=== PATIENT | male | born 1940 | race Caucasian/White ===

== ENCOUNTER 2017-01-11 11:00 | Inpatient (IN) | payer BC ==
--- NOTE | ~2017-01-11 | DS ---
Discharge Summary [facility] [address] [place]. [address] NAME: KERI ROBERTSON : 42 STATUS : DIS IN PAT#: [id number] AGE: 76 ADM/REG DATE : 01/11/17 MR#: [id number] REPORT SERV DATE: 01/14/17 DICTATED BY: DATE: REPORT STATUS : Draft TRANSCRIBED BY: MODL DATE: 01/13/17 ADMISSION DATE: 01/11/2017 DISCHARGE DATE: 01/13/2017 [facility] CONSULTANTS: Dr. Too Hernández of Urology. DISCHARGE DIAGNOSES: 1. Posterior scrotal abscess, status post incision and drainage at the bedside on 01/11/2017. Wound culture pending at the time of discharge. For additional local wound care, through either home health or the [facility]. Discharge antibiotics include Levaquin and Flagyl. 2. Insulin-dependent diabetes mellitus type 2 - uncontrolled as an outpatient with hemoglobin A1c 7.9. Required significantly less insulin during hospitalization. 3. Acute kidney injury on chronic kidney disease, stage 3 to 4, resolved. Baseline creatinine between 1.8 and 2.0. JODEE inhibitor held at discharge for re-evaluation by primary care provider. 4. Hypertension - controlled. 5. Hyperlipidemia. 6. Hypothyroidism - on replacement with elevation in TSH, but normal free T4. For outpatient repeat. 7. Chronic left bundle-branch block. 8. History of right thalamic cerebrovascular accident. 9. Possible mild cognitive impairment versus early dementia, documented in the record previously. IMAGIN. Pelvis CT without contrast, for scrotal mass shows edema in the subcutaneous fat. Minimal fluid in the scrotum. Diverticulosis but no diverticulitis. Grade 2 anterior spondylolisthesis of L5 on S1 with bilateral spondylolysis and degenerative disk change. 2. Testicular ultrasound, normal heterogeneous texture of older testes. No testicular mass. Circumscribed mildly hypoechoic nodule in the posterior testicular wall in the midline may represent remote inflammatory process or result of trauma. Area is not hyperemic to strongly suggest inflammation. 3. Portable chest x-ray, coarse interstitial markings and no acute abnormality. 4. Renal ultrasound, no hydronephrosis. Increased renal cortical echogenicity compatible with chronic medical renal disease. Distended bladder. PERTINENT LABS: Creatinine at admission was 2.57, 2.1 at the time of discharge. Potassium values between 5 and 5.2. Not on any supplementation. Liver enzymes normal. TSH 8.77, free T4 0.95, hemoglobin A1c 7.9, ammonia level negative. Lactic acid level 0.9. White blood cell count between 9.4 and 10.6, hemoglobin 12.7, hematocrit 37, platelets 272. Coagulation studies normal. Urinalysis showed protein, but no signs of infection. Blood cultures x2 no growth. Wound culture in progress. Occasional white blood cells and Discharge Summary [address] [address] NAME: KERI ROBERTSON : 42 STATUS : DIS IN PAT#: [id number] AGE: 76 ADM/REG DATE : 01/11/17 MR#: [id number] REPORT SERV DATE: 01/14/17 DICTATED BY: DATE: REPORT STATUS : Draft TRANSCRIBED BY: MODL DATE: 01/13/17 occasional gram-positive bacilli on Gram stain. BRIEF HISTORY: For full details, please see the previously dictated history of present illness by Dr. Amy Brown. This is a 76-year-old white male with history of scrotal abscesses, previously drained by Dr. Rich Hills, who presented to the emergency department with a chief complaint of tender nodule on the posterior aspect of the scrotum which had been present for two weeks. He was also found to have acute kidney injury and admitted to the Hospitalist Service for management. HOSPITAL COURSE: For the posterior scrotal abscess, the patient was placed on Levaquin and vancomycin empirically and urology consultation was obtained. Dr. Too Hernández saw the patient on the day of admission and performed a bedside incision and drainage. Noted that the abscess was approximately 3 cm, with moderate amount of purulent material. The Gram stain demonstrated scant white blood cells and gram-positive bacilli. The culture is pending at the time of discharge. Empiric antibiotics selected for discharge will include Levaquin and Flagyl. Culture results will need to be followed up in the outpatient setting. The patient's acute kidney injury responded with holding his JODEE inhibitor and gently hydrating. Of note, he also had evidence of mild hyperkalemia, suggesting that he may not be tolerant of an JODEE inhibitor. His lisinopril was held during the admission and at discharge, for followup with his primary care provider. His blood pressure was controlled on his other medications at the time of discharge. He does have insulin-dependent diabetes and requires a significant amount of insulin as an outpatient. Here, experienced relative hypoglycemia on significantly lower doses of insulin suggesting a strong component of dietary noncompliance or insulin noncompliance in the outpatient setting. This needs to be followed up by his primary care provider as well. Also, on levothyroxine, he was noted to have an elevated TSH above 8, but a normal free T4. He should have outpatient thyroid function tests for possible dosage adjustments. The patient was ready for discharge on 01/13/2017, and were in the process of determining how he will obtain wound care. Unfortunately, his insurance only covers one home health visit, and it is unclear whether the patient will be able to attend to his own wound given the location. He states he has no family members to assist, and he is refusing detention care for dressing changes. Instead, we are looking into having and follow up with the [facility] three times next week for dressing changes, and to follow up closely with Dr. Rich Hills in one to two weeks. He will be discharged on an additional eight days of antibiotics to complete a 10-day course of antibiotics post incision and drainage. He will need to follow up with primary care provider, Nicole Wetzel in two-three weeks regarding lisinopril, repeat basic metabolic panel, a repeat thyroid function tests, and levothyroxine dosing. DISCHARGE MEDICATIONS: Include: 1. Lantus 64 units subcu at bedtime. Discharge Summary [address] [address] NAME: KERI ROBERTSON : 42 STATUS : DIS IN PAT#: [id number] AGE: 76 ADM/REG DATE : 01/11/17 MR#: [id number] REPORT SERV DATE: 01/14/17 DICTATED BY: DATE: REPORT STATUS : Draft TRANSCRIBED BY: MODHuber DATE: 01/13/17 2. Levothyroxine 50 mcg p.o. daily. 3. Metoprolol 12.5 mg p.o. twice a day. 4. Pravastatin 40 mg p.o. daily. 5. Nifedipine ER 30 mg p.o. daily. 6. Levaquin 750 mg p.o. q.48 hours x4 days - to start on 01/13/2017. 7. Flagyl 500 mg p.o. q.8 hours for 8 days. Thirty five minutes was spent in completion of the discharge. DICTATED BY: Jimmy Aburto/JULITO Jamaal Torrez M.D. / [id number] CC: Jimmy Aburto Susan Gaile David Sahaj, M.D.
--- NOTE | ~2017-01-11 | HP ---
History And Physical [facility] [address] [place]. [address] NAME: KERI ROBERTSON : 42 STATUS : ADM IN [facility]#: [id number] AGE: 76 ADM/REG DATE : 01/11/17 MR#: [id number] REPORT SERV DATE: 01/11/17 DICTATED BY: AMY BOYD DATE: 01/11/17 REPORT STATUS : Draft TRANSCRIBED BY: MODL DATE: 01/11/17 DATE OF ADMISSION: 01/11/2017 CHIEF COMPLAINT: Scrotal mass and discomfort for two weeks. HISTORY OF PRESENT ILLNESS: This is a very pleasant, but very poor historian, 76-year-old gentleman. He does have a history of prior stroke, hypertension, hyperlipidemia, diabetes type 2, hypothyroidism, chronic kidney disease, and history of a scrotal abscess that has been operated on by Dr. Hills in 2014, presenting today to [facility] with complaints that he has a discomfort on his scrotum and that has been occurring about two weeks ago. He has not had really pain, but the patient says that about two weeks ago, he had a small node on the scrotal area, was a little bit tender, but no discharge. No fever. No really pain, but some discomfort and he has decided to come today to emergency room to "see what is going on." He did not have any fever. No chills. No chest pain or increasing shortness of breath. No PND. No orthopnea. No abdominal pain. No increased urinary frequency or urgency. No hematemesis or melena. No hematochezia. No other complaints. He has been evaluated in the emergency room, and after talking with Dr. Hills, the patient has been admitted to Hospitalist Service for further evaluation and treatment. PAST MEDICAL HISTORY: Significant for hypertension, hyperlipidemia, diabetes type 2, insulin dependent, hypothyroidism, history of CVA, as well as chronic left bundle-branch block. PAST SURGICAL HISTORY: Scrotal surgery for scrotal abscess with I and D in 2014. ALLERGIES: HE DOES NOT HAVE ANY DRUG ALLERGIES. FAMILY HISTORY: Significant for cancer. SOCIAL HISTORY: The patient is . He does not smoke. No alcohol. No IV drugs. MEDICATIONS AT HOME: Include Lantus, levothyroxine, Prinivil, Lopressor, Adalat, and Pravachol. REVIEW OF SYSTEMS: Fourteen-point review of systems has been obtained and pertinent positive has been listed into the history of present illness. Otherwise, negative except for those underlying above. PHYSICAL EXAMINATION: VITAL SIGNS: The patient is afebrile. Blood pressure 148/71, heart rate 86, respiratory rate 16, and saturating 98% on room air. GENERAL: He is a very pleasant, well-developed, well-nourished gentleman, in no acute distress. Alert and oriented x3. He is nonfocal. He follows all his commands appropriately. HEENT: Shows pupils equal, round, reactive to light. Extraocular movements are intact. NECK: No JVD. No lymphadenopathy. No thyromegaly appreciated. CHEST: Evaluation shows bilateral air entry, clear anteroposterior. No wheezes, crackles, History And Physical [address] [address] NAME: KERI ROBERTSON : 42 STATUS : ADM IN [facility]#: [id number] AGE: 76 ADM/REG DATE : 01/11/17 MR#: [id number] REPORT SERV DATE: 01/11/17 DICTATED BY: AMY BOYD DATE: 01/11/17 REPORT STATUS : Draft TRANSCRIBED BY: MODL DATE: 01/11/17 or rhonchi appreciated. CARDIOVASCULAR: Regular rate and rhythm. S1, S2 positive. No S3, no S4. No murmurs, rubs, or gallops appreciated. ABDOMEN: Soft with positive bowel sounds. Nontender. No guarding. No rebound. EXTREMITIES: No clubbing, cyanosis, or edema. NEUROLOGIC: The patient is alert and oriented x3. He is nonfocal. He follows all commands appropriately. UROGENITAL: There is a scrotal mass in the posteromedial area of the scrotum that is just mildly tender. No fluctuance appreciated. No drain. No redness. LABORATORY DATA: Labs from today include sodium 137, potassium is 5, chloride 105, CO2 of 24, BUN 45, creatinine is 2.57, glucose is 159. His white count is 10.2, hemoglobin 12.7, hematocrit 36.7, and platelets 287. UA currently is pending. There is CT of the pelvis without contrast that is pending as well. ASSESSMENT: This is a very pleasant 76-year-old gentleman with: 1. Questionable abscess, scrotal mass of unclear etiology. 2. Yyhfh-ws-scbbuwr kidney disease stage 3. 3. History of hypertension. 4. Diabetes type 2, insulin dependent, uncontrolled. 5. Hyperlipidemia. 6. History of cerebrovascular accident. 7. Chronic left bundle-branch block. PLAN: 1. Scrotal mass. Unclear etiology, questionable possible abscess. We are going to get the CAT scan of the pelvis without contrast and also a scrotal ultrasound. Panculture him. We are going to start him empirically on antibiotics with Levaquin and vancomycin and consult Dr. Hills for further recommendation. 2. Dfxsr-zh-olxsezt kidney disease. We are going to provide IV hydration. We are going to check UA, urine cultures, as well as studies including urine sodium, creatinine, and osmolality. We are going to check a renal ultrasound. We are going to hold his Prinivil, and strict I's and O's and strict daily weights. 3. History of hypertension. Continue his beta-valdo. Continue his Adalat. Provide p.r.n. hydralazine as needed. 4. Diabetes type 2. We will check hemoglobin A1c. Levemir at bedtime and place the patient on sliding scale insulin subcutaneously level 2. We are going to provide reasonable pain and nausea control, as well as GI and DVT prophylaxis. That has been discussed extensively with the patient. All the questions have been answered in full. Further workup and recommendation pending above. It is worthwhile to note that the patient is going to be followed up by Hospitalist Service. CF/MODL History And Physical [address] [address] NAME: KERI ROBERTSON : 42 STATUS : ADM IN [facility]#: [id number] AGE: 76 ADM/REG DATE : 01/11/17 MR#: [id number] REPORT SERV DATE: 01/11/17 DICTATED BY: AMY BOYD DATE: 01/11/17 REPORT STATUS : Draft TRANSCRIBED BY: JULITO DATE: 01/11/17 y Boyd M.D. / [id number] CC: Jimmy Aburto,NEHEMIAS BANSAL
--- NOTE | ~2017-01-11 | CN ---
Consultation Report [facility] [address] [place]. [address] NAME: KERI ROBERTSON : 42 STATUS : ADM IN [facility]#: [id number] AGE: 76 ADM/REG DATE : 01/11/17 MR#: [id number] REPORT SERV DATE: 01/11/17 DICTATED BY: TOO CELESTE DATE: 01/11/17 REPORT STATUS : Draft TRANSCRIBED BY: MODHuber DATE: 01/11/17 CONSULTATION REPORT DATE OF CONSULTATION: 01/11/2017 REASON FOR CONSULTATION: "Scrotal mass." HISTORY OF PRESENT ILLNESS: Mr. Robertson is a 76-year-old white gentleman who is an established patient of Dr. Rich Hills. At about five years ago, the patient had a scrotal abscess incised and drained. He is admitted with among other things, a recurrent midline perineal fluctuant mass consistent with abscess. He says he has had about two weeks. No fever or chills. Voiding well, clear yellow urine. Lab is reviewed. The patient is to be started on vancomycin and Levaquin. IMPRESSION: Scrotal abscess. PLAN: Incise and drain scrotal abscess at the bedside under local anesthetic. This was explained to the patient and he understands, permit signed. /JULITO Too Celeste M.D. / [id number] CC: Jimmy Aburto SUSAN GAILE
--- NOTE | ~2017-01-11 | OP ---
Record Of Operation [facility] [address] [place]. [address] NAME: KERI ROBERTSON : 42 STATUS : ADM IN [facility]#: [id number] AGE: 76 ADM/REG DATE : 01/11/17 MR#: [id number] REPORT SERV DATE: 01/12/17 DICTATED BY: TOO CELESTE DATE: 01/11/17 REPORT STATUS : Draft TRANSCRIBED BY: MODL DATE: 01/11/17 DATE OF PROCEDURE: 01/11/2017 PREOPERATIVE DIAGNOSIS: Superficial scrotal abscess. POSTOPERATIVE DIAGNOSIS: Superficial scrotal abscess. OPERATIVE PROCEDURE: Incision and drainage of scrotal abscess. ANESTHESIA: Local. SURGEON: Too Celeste M.D. ESTIMATED BLOOD LOSS: Less than 2 mL. SPECIMEN: Purulent material from abscess for culture and sensitivity. COMPLICATIONS: None. IMMEDIATE POSTOP: Satisfactory. DESCRIPTION OF PROCEDURE: The patient was prepped and draped in sterile fashion. The scrotum was lifted upward so that the perineum and 3 cm scrotal fluctuant mass was visible. I then anesthetized the skin with Xylocaine without epinephrine. An incision was then made in the abscess and a moderate amount of purulent material issued forth. A sample of this was obtained for culture. The wound was then cleaned with saline and packed with iodoform gauze. It was then dressed. The patient tolerated the procedure well. There were no complications. /JULITO Too Celeste M.D. / [id number] CC: Jimmy Aburto Dr.
[2017-01-11 10:10] LABS: BASOPHILS 0.5 %; BASOPHILS ABSOLUTE 0.05 10/3/uL (0.0-0.16); EOSINOPHILS 0.9 %; EOSINOPHILS ABSOLUTE 0.09 10/3/uL (0.0-0.53); ER CBC TAT 0 Hrs 05 Mins; HEMATOCRIT 36.7 % (40.0-51.0); HEMOGLOBIN 12.7 g/dL (13.6-17.8); IMMATURE GRANULOCYTES 0.2 %; IMMATURE GRANULOCYTES ABSOLUTE 0.02 10/3/uL (0.0-0.11); LYMPHOCYTES 26.6 %; MANUAL DIFF NO %; MEAN CORPUS HGB CONC 34.6 g/dL (32.0-36.0); MEAN CORPUSCULAR HEMOGLOB 29.5 pg (26.0-34.0); MEAN CORPUSCULAR VOLUME 85.2 fL (80-100); MEAN PLATELET VOLUME 8.6 fL (9.2-13.0); MONOCYTES 5.8 %; MONOCYTES ABSOLUTE 0.59 10/3/uL (0.21-1.20); NEUTROPHILS ABSOLUTE 6.71 10/3/uL (2.02-8.40); PLATELET COUNT 287 10/3/uL (150-400); RBC DISTRIBUTION WIDTH 14.6 % (12.0-16.0); RED CELL COUNT 4.31 10/6/uL (4.7-6.1); WHITE BLOOD CELLS 10.2 10/3/uL (4.5-10.5)
[2017-01-11 10:21] LABS: BUN (BLOOD UREA NITROGEN) 45 MG/DL (6-23); CALCIUM, SERUM 9.9 MG/DL (8.5-10.4); CHLORIDE, SERUM 105 MMOL/L (96-112); CO2 (CARBON DIOXIDE) 24 MMOL/L (24-34); CREATININE 2.57 MG/DL (0.70-1.30); GFR AFRICAN AMERICAN 27 ML/MIN (>=60); GFR NON AFRICAN AMERICAN 23 ML/MIN (>=60); GLUCOSE, SERUM 156 MG/DL (60-99); SODIUM, SERUM 137 MMOL/L (135-148)
[~2017-01-11 11:00] MED LIST: ACTOS15 PO; AMARYL4 PO; ASA5GR PO; COREG12 PO; HUMALOG SC; JANUVIA100 MG PO; LANTUS SC; LANTUSCART SC; LEVOTHYROXIN50 MCG PO; LISINOPRIL40 MG PO; PLAVIX PO; PRAV10 PO; PRIN20 PO; SYN88 PO
[2017-01-11] MEDS ORDERED: LOP25 PO (11:42)
[2017-01-11] MEDS ORDERED: LISINOPRIL40 MG PO (11:42)
[2017-01-11] MEDS ORDERED: LEVOTHYROXIN50 MCG PO (11:42)
[2017-01-11] MEDS ORDERED: PRAVACHOL40 MG PO (11:42)
[2017-01-11] MEDS ORDERED: LANTUS SC (11:44)
[2017-01-11] MEDS ORDERED: ADALAT CC30 MG PO (11:45)
[2017-01-11 13:32] LABS: ASCORBIC ACID (UR NOT ORDER) NEG (NEG); BILIRUBIN, URINE NEGATIVE (NEG); ER URINALYSIS TAT 0 Hrs 16 Mins; KETONE, URINE NEGATIVE (NEG); LEUKOCYTE ESTERASE(NOT OR NEG (NEG); NITRITE (URINE) NEG (NEG); WBC (NOT ORDERED) (RFLEX) 1 (0-5)
[2017-01-11 17:57] LABS: PARTIAL THROMBO TIME 30.3 SEC (22.5-37.2); PROTIME (NOT ORD) 13.4 SEC (12.0-14.5)
[2017-01-11 18:10] LABS: ALBUMIN 3.2 G/DL (3.5-5.0); DIRECT BILIRUBIN 0.1 MG/DL (0.0-0.4); FREE T4 0.95 NG/DL (0.76-1.46); INDIRECT BILIRUBIN(NOT ORDER) 0.4 MG/DL (0.1-0.9); PHOSPHORUS, SERUM 3.3 MG/DL (2.5-4.5); TOTAL BILIRUBIN 0.5 MG/DL (0-1.2); TOTAL PROTEIN 7.5 G/DL (6.0-8.5)
[2017-01-11 18:11] LABS: ULTRASENSITIVE TSH 8.77 MCIU/ML (0.358-3.740)
[2017-01-11 19:08] LABS: PROCALCITONIN 0.05 ng/mL (<0.5)
[2017-01-11 21:17] LABS: GLYCOHEMOGLOBIN (HbA1c) 7.9 % (4.7-6.1)
[2017-01-12 06:26] LABS: BASOPHILS 1.1 %; EOSINOPHILS 1.9 %; EOSINOPHILS ABSOLUTE 0.18 10/3/uL (0.0-0.53); HEMATOCRIT 35.4 % (40.0-51.0); HEMOGLOBIN 12.1 g/dL (13.6-17.8); IMMATURE GRANULOCYTES 0.2 %; IMMATURE GRANULOCYTES ABSOLUTE 0.02 10/3/uL (0.0-0.11); LYMPHOCYTES 23.9 %; LYMPHOCYTES ABSOLUTE 2.23 10/3/uL (0.67-4.30); MEAN CORPUS HGB CONC 34.2 g/dL (32.0-36.0); MEAN CORPUSCULAR VOLUME 84.9 fL (80-100); MEAN PLATELET VOLUME 8.9 fL (9.2-13.0); MONOCYTES 6.3 %; MONOCYTES ABSOLUTE 0.59 10/3/uL (0.21-1.20); NEUTROPHILS 66.6 %; NEUTROPHILS ABSOLUTE 6.23 10/3/uL (2.02-8.40); PLATELET COUNT 264 10/3/uL (150-400); RBC DISTRIBUTION WIDTH 14.5 % (12.0-16.0); RED CELL COUNT 4.17 10/6/uL (4.7-6.1); WHITE BLOOD CELLS 9.4 10/3/uL (4.5-10.5)
[2017-01-12 06:28] LABS: MANUAL DIFF NO %
[2017-01-12 06:41] LABS: A/G RATIO 0.7 (0.7-1.9); ALBUMIN 2.7 G/DL (3.5-5.0); ALKALINE PHOSPHATASE 102 U/L (45-117); CHLORIDE, SERUM 107 MMOL/L (96-112); CO2 (CARBON DIOXIDE) 23 MMOL/L (24-34); GLOBULIN 4.1 G/DL (2.5-4.1); SGOT(AST) 22 U/L (5-40); SGPT(ALT) 13 U/L (5-65); SODIUM, SERUM 135 MMOL/L (135-148); TOTAL BILIRUBIN 0.5 MG/DL (0-1.2); TOTAL PROTEIN 6.8 G/DL (6.0-8.5)
[2017-01-12 06:42] LABS: BUN (BLOOD UREA NITROGEN) 36 MG/DL (6-23); CALCIUM, SERUM 8.8 MG/DL (8.5-10.4); CREATININE 2.07 MG/DL (0.70-1.30); GFR AFRICAN AMERICAN 35 ML/MIN (>=60); GFR NON AFRICAN AMERICAN 30 ML/MIN (>=60); GLUCOSE, SERUM 65 MG/DL (60-99)
[2017-01-12 11:08] LABS: OSMOLALITY, URINE 416 MOSM/KG (50-1200)
[2017-01-12 11:16] LABS: CREATININE, URINE 44.3 MG/DL; SODIUM, URINE 122 MEQ/L
[2017-01-12 11:19] LABS: AMPHETAMINES (NOT ORD) NEG (NEG); BARBITURATES (NOT ORDERED NEG (NEG); BENZODIAZEPINES (NOT ORD) NEG (NEG); CANNABINOIDS (THC) NEG (NEG); COCAINE (NOT ORDERED) NEG (NEG); OPIATES NEG (NEG); PHENCYCLIDINE(PCP) NEG (NEG); TRICYCLICS NEG (NEG)
[2017-01-13 06:18] LABS: BASOPHILS 0.6 %; BASOPHILS ABSOLUTE 0.06 10/3/uL (0.0-0.16); EOSINOPHILS 2.2 %; EOSINOPHILS ABSOLUTE 0.23 10/3/uL (0.0-0.53); HEMOGLOBIN 12.7 g/dL (13.6-17.8); IMMATURE GRANULOCYTES 0.2 %; IMMATURE GRANULOCYTES ABSOLUTE 0.02 10/3/uL (0.0-0.11); LYMPHOCYTES 26.8 %; LYMPHOCYTES ABSOLUTE 2.84 10/3/uL (0.67-4.30); MEAN CORPUS HGB CONC 34.3 g/dL (32.0-36.0); MEAN CORPUSCULAR HEMOGLOB 29.1 pg (26.0-34.0); MEAN CORPUSCULAR VOLUME 84.7 fL (80-100); MEAN PLATELET VOLUME 8.6 fL (9.2-13.0); MONOCYTES 6.5 %; MONOCYTES ABSOLUTE 0.69 10/3/uL (0.21-1.20); NEUTROPHILS 63.7 %; NEUTROPHILS ABSOLUTE 6.76 10/3/uL (2.02-8.40); PLATELET COUNT 272 10/3/uL (150-400); RBC DISTRIBUTION WIDTH 14.3 % (12.0-16.0); RED CELL COUNT 4.37 10/6/uL (4.7-6.1); WHITE BLOOD CELLS 10.6 10/3/uL (4.5-10.5)
[2017-01-13 06:20] LABS: MANUAL DIFF NO %
[2017-01-13 06:27] LABS: CALCIUM, SERUM 8.7 MG/DL (8.5-10.4); CHLORIDE, SERUM 107 MMOL/L (96-112); CO2 (CARBON DIOXIDE) 21 MMOL/L (24-34); GFR AFRICAN AMERICAN 35 ML/MIN (>=60); GFR NON AFRICAN AMERICAN 30 ML/MIN (>=60); POTASSIUM, SERUM 5.2 MMOL/L (3.5-5.3); SODIUM, SERUM 137 MMOL/L (135-148)
[2017-01-13 06:28] LABS: BUN (BLOOD UREA NITROGEN) 31 MG/DL (6-23); GLUCOSE, SERUM 118 MG/DL (60-99)
[2017-01-13] MEDS ORDERED: FLAG500TAB PO (09:00)
[2017-01-13] MEDS ORDERED: LEVAQUIN750 MG PO (09:01)
== END 2017-01-13 16:04 | disposition home health service (06) | DRG 728 ==
LOC: ER 11:00 → 4SO 14:30
PROVIDERS: Hospitalist; Internal Medicine; Nurse Practitioner
PROC: 0J9B0ZX Drainage of Perineum Subcutaneous Tissue and Fascia, Open Approach, Diagnostic (ICD-10-PCS; principal; 2017-01-11)
DX: N49.2 Inflammatory disorders of scrotum (principal); N17.9 Acute kidney failure, unspecified; E11.22 Type 2 diabetes mellitus with diabetic chronic kidney disease; E11.649 Type 2 diabetes mellitus with hypoglycemia without coma; Z86.73 Personal history of transient ischemic attack (TIA), and cerebral infarction without residual deficits; E78.5 Hyperlipidemia, unspecified; E03.9 Hypothyroidism, unspecified; I12.9 Hypertensive chronic kidney disease with stage 1 through stage 4 chronic kidney disease, or unspecified chronic kidney disease; Z79.4 Long term (current) use of insulin; I44.7 Left bundle-branch block, unspecified; N18.3 Chronic kidney disease, stage 3 (moderate); E11.65 Type 2 diabetes mellitus with hyperglycemia; G31.84 Mild cognitive impairment of uncertain or unknown etiology; E87.5 Hyperkalemia
CPT/HCPCS: 71010; 72192; 76775; 76870; 80048; 80053; 80076; 80305; 81001; 82140; 82570; 82962; 83036; 83605; 83615; 83735; 83935; 84100; 84145; 84300; 84439; 84443; 85025; 85610; 85730; 87040; 87070; 87205; 93005; 99285; A9270-GY; J0360; J1956; J3370